=== PATIENT | male | born 1960 | race Caucasian/White ===

== ENCOUNTER 2016-11-13 16:54 | Emergency (ER) | payer MEDICARE, MEDICAID ==
[~2016-11-13] VITALS: Ht 170.2 cm; Wt 75.0 kg
[~2016-11-13 16:54] MED LIST: ASPI-973 PO; CIPR-231 PO; CLOP75TA28 PO; INSU100I SQ; INSU100V7 SUBQ; LISI-567 PO; METF1000 PO; ONDA-54 PO; OXYC-466 PO; OXYC1TAB24 PO; SIMV20TA4 PO; TRAM50TA2 PO; TRAZ-115 PO
[2016-11-13 16:58] VITALS: BP 146/74; PULSE 71; RESP 15; O2SAT 98
--- NOTE | 2016-11-13 18:14 | ED.REPORT ---
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 He is followed by Dr. Coelho and Dr. Yuen. Patient states that his right foot was cleansed and redressed today at 1615, but that his foot started bleeding when he returned home. Patient denies sustaining any trauma or injury to the foot. He states that there was a great deal of blood, which scared him. He therefore called 911. Patient denies having pain in his leg. The patient states that he feels lightheaded whenever he sees blood and that he felt uncomfortable. Patient denies having a fever, chest pain, shortness of breath, or feeling light headed on arrival to the ED. 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 Nursing Notes Stated Complaint: BLEEDING RIGHT FOOT Chief Complaint: Extremity Trauma Nursing Notes Reviewed: Yes Allergies: Coded Allergies: ceftriaxone (Verified Allergy, Severe, rash, 09/07/16) Scheduled Aspirin (Aspirin) 81 Mg Tablet 81 MG PO DAILY Ciprofloxacin (Cipro) 500 Mg Tablet 500 MG PO BID Clopidogrel (Clopidogrel) 75 Mg Tablet 75 MG PO DAILY Insulin Aspart (NovoLOG U-100 Pen) 100 Unit/Ml Insuln.pen 2 UNITS SQ TIDAC Insulin Glargine (Lantus U100 Insulin Vial) 100 Unit/Ml Vial 30 UNIT SUBQ QPM Lisinopril (Lisinopril) 20 Mg Tablet 20 MG PO DAILY Metformin (Glucophage) 1,000 Mg Tablet 1,000 MG PO BID Ondansetron (Ondansetron) 8 Mg Tablet 8 MG PO QID Simvastatin (Simvastatin) 20 Mg Tablet 20 MG PO HS Trazodone (Trazodone) 50 Mg Tablet 50 MG PO HS Scheduled PRN Tramadol (Tramadol) 50 Mg Tablet 50 MG PO Q4H PRN PRN For Pain oxyCODONE-Acetaminophen 10-325 mg (oxyCODONE-Acetaminophen 10-325 mg) 1 Each Tablet 1 TABLET PO Q6H PRN PRN For Pain oxyCODONE-Acetaminophen 5-325 mg (oxyCODONE-Acetaminophen 5-325 mg) 1 Each Tablet 1 TAB PO Q4H PRN PRN For Pain General Time Seen by MD: 17:16 Chief Complaint Other (bleeding from right foot amputation site) Hx Obtained From: Patient Arrived By: Ambulance Onset Occurred: Just prior to arrival Symptom Duration: Since onset Severity: Current: No pain currently Severity: Maximum: No pain Recent Healthcare: No recent hospitalization, Recent doctor visit Similar Sx Previous: No Past Medical History Patient History: Patient reports no known family medical history. Past Medical History Notes: Followed by Dr. [facility] Past Medical History diabetes mellitus with peripheral neuropathy diabetic ulcers, weekly Wound Clinic visits Depression arthritis anxiety Reports: Asthma, GERD, Hypertension Past Surgical History Lower extremity vascular surgery amputation of the left 2nd digit amputation of the right foot Family History Diabetes mellitus Smoking History Never Smoker Social History The patient chews tobacco Alcohol Use: In recovery Drug Use: THC Other Social History: Good social support, Local resident Ambulatory Status Independent Review of Systems Constitutional: Denies: Chills, Fever Musculoskeletal: Denies: Extremity pain, Extremity swelling Neurologic: Denies: Change LOC, Dizziness, Lightheaded Complete sys rev & neg: except as marked. Respiratory: Denies: Non-productive cough, Shortness of breath Cardiovascular: Denies: Chest pain, Palpitations Hematologic: Reports Bleeding, Denies Bruising Physical Exam Initial Vital Signs Vital Signs (First) Date Time Temp Pulse Resp B/P Pulse Ox O2 Delivery O2 Flow Rate FiO2 11/13/16 16:58 36.6 71 15 146/74 98 Room Air Initial VS: Reviewed Head / Eyes: Atraumatic, Normocephalic, PERRL ENT: Conjunctiva normal, No scleral icterus Neck: Supple, Full range of motion Respiratory: No respiratory distress Abdomen / GI: Soft, Non-tender Upper Extremities: Vascular intact, Neuro intact Skin: Warm, Dry, No cyanosis Neurologic: Alert, Oriented, Nonfocal Psychiatric: Mood/affect normal, Behavior normal, Normal thought content Lower Extremity / Pelvis / MS: No swelling, No erythema Ankle / Foot: No swelling, No erythema s/p right foot amputation with grossly bloody gauze, which was remvoed small 2mm punctate area with small amount of blood. no active bleeding, no surrouding erythema. General/Constitutional: Awake, Alert, No acute distress Cardiovascular: Heart rate NL, Regular rhythm Re-Eval/Medical Decision Med Decision/Clinical Course 56-year-old male history of chronic lower extremity wounds presenting with bleeding from right lower external wound status post wound care appointment today. Patient went to wound care and they probed and apparently debrided. Patient reports bleeding afterwards and noticed that the gauze was followed blood. On arrival patient with no active bleeding. His dressing was changed. Stable to go home with return precautions. Source of Hx: Old records Re-Evaluation/Progress : Time of Eval: 18:31 Patient Status: Condition improved Re-Evaluation/Progress Note: Wound is no longer bleeding and will be redressed. Patient understands and agrees with the plan to be discharged home. Discharge instructions and follow-up discussed. All questions were addressed. Return to the ED warnings given. Counseled Regarding: Diagnosis, Need for follow-up, When/why to return to ED Discharge & Departure Impression: Primary Impression: Bleeding from wound Disposition: Home Discharge Condition All VS Reviewed: Yes Condition: Stable Patient Instructions: Chronic Wound Care (ED) Additional Instructions: It does not appear that your wound is actively bleeding. The dressing was replaced in the emergency department today. Your evaluation was reassuring. Follow-up at the [facility] next Wednesday as planned. Return to the emergency department if you develop any increasing bleeding that will not stop with pressure, lightheadedness, chest pain, shortness of breath, fever or concerning symptoms. Referrals: Warren Lemus MD (PCP) Ale Coelho DPM Scribe Attestation Portions of this note were transcribed by Bobbi Browning. I, Dr. Black personally performed the history, physical exam and medical decision-making; I reviewed and confirmed the accuracy of the information in the transcribed note. Signed by: Didi Landeros, 11/13/2016 1935 copies to: Warren Lemus MD; Ale Coelho DPM, Ben M MD Nov 13, 2016 18:14 Bobbi Browning Nov 13, 2016 18:30
[2016-11-13 19:21] VITALS: BP 132/74; PULSE 74; RESP 16; O2SAT 96
== END 2016-11-13 19:22 | disposition home or self-care (01) ==
LOC: EDBD 16:54 → SED 16:54 → EDUNIT# 16:54 → SED 19:22
DX: T87.89 Other complications of amputation stump (principal); Y83.5 Amputation of limb(s) as the cause of abnormal reaction of the patient, or of later complication, without mention of misadventure at the time of the procedure; Y93.89 Activity, other specified; Y99.8 Other external cause status; Y92.531 Health care provider office as the place of occurrence of the external cause; E11.40 Type 2 diabetes mellitus with diabetic neuropathy, unspecified; E13.622 Other specified diabetes mellitus with other skin ulcer; I10 Essential (primary) hypertension; J45.909 Unspecified asthma, uncomplicated; F12.10 Cannabis abuse, uncomplicated; K21.9 Gastro-esophageal reflux disease without esophagitis; F17.200 Nicotine dependence, unspecified, uncomplicated; Z79.84 Long term (current) use of oral hypoglycemic drugs; Z79.82 Long term (current) use of aspirin; Z79.4 Long term (current) use of insulin; Z88.1 Allergy status to other antibiotic agents

== ENCOUNTER 2017-07-03 15:49 | Inpatient (IN) | payer MEDICARE, MEDICAID ==
[2017-07-03] VITALS (9 sets, daily range): BP systolic 125–171; BP diastolic 55–85; PULSE 58–104; RESP 13–20; O2SAT 97–100
[~2017-07-03] VITALS: Ht 170.2 cm; Wt 75.7 kg
--- NOTE | 2017-07-03 15:58 | ED.REPORT ---
HPI-General Illness Date of Service Jul 03, 2017 ED Provider: Efrain Correia MD Pt is a 57 y/o male with a history of DM, CAD, [place], hyperlipidemia, and hypertension who presents to the ED sent from c/o midsternal chest pain that radiates to his left shoulder onset 1999 last night. He describes his symptom as constant with "sharp" and "stabbing" pain that is exacerbated by movement. He was sitting in his chair when the chest pain started. At the worst, he rated his pain as 8/10, but rates it now as 6/10. Additional symptoms include headache , SOB, tingling in L hand, nausea, vomiting x2, and lightheadedness. He denies fever, abdominal pain, bladder or bowel incontinence, or any other symptoms. He was given nitro with temporary relief in symptoms. Nursing Notes Stated Complaint: CHEST PAIN Chief Complaint: Chest Pain Nursing Notes Reviewed: Yes Allergies: Coded Allergies: ceftriaxone (Verified Allergy, Severe, rash, 09/07/16) Scheduled Aspirin (Aspirin) 81 Mg Tablet 81 MG PO QAM Clopidogrel (Clopidogrel) 75 Mg Tablet 75 MG PO QAM Insulin Aspart (NovoLOG U-100 Pen) 100 Unit/Ml Insuln.pen 2 UNITS SQ TIDAC Insulin Glargine (Lantus U100 Insulin Vial) 100 Unit/Ml Vial 10-15 UNIT SUBQ HS Lisinopril (Lisinopril) 20 Mg Tablet 20 MG PO QAM Metformin (Glucophage) 1,000 Mg Tablet 1,000 MG PO BIDWM Olanzapine (Olanzapine) 2.5 Mg Tablet 2.5 MG PO HS Pravastatin (Pravastatin) 20 Mg Tablet 20 MG PO HS Trazodone (Trazodone) 100 Mg Tablet 200 MG PO HS Venlafaxine ER (Venlafaxine ER) 75 Mg Tab.er.24 75 MG PO QAM General Time Seen by MD: 15:58 Chief Complaint Chest pain Hx Obtained From: Patient Arrived By: Walk-in Sudden in Onset?: No Onset Occurred: Yesterday Symptom Duration: Constant Location: : Chest Quality: Painful, Sharp, Stabbing Radiation: : Shoulder Severity: Current: Pain level 6 out of 10 Severity: Maximum: Pain level 8 out of 10 Associated with: Reports: Headache, Nausea, Numb extremities, Shortness of breath, Vomiting Additional Notes: lightheadedness Pertinent Negative: Pt denies other symptoms Relieved by: Prescription meds Context Related History: Reports Coronary artery disease, Reports Diabetes mellitus Recent Healthcare: No recent hospitalization, Recent doctor visit Similar Sx Previous: No Past Medical History Patient History: Patient reports no known family medical history. Past Medical History Notes: Followed by Dr. [facility] Past Medical History diabetes mellitus with peripheral neuropathy diabetic ulcers, weekly Wound Clinic visits [place] in 2012 Depression arthritis anxiety strabismus since childhood Reports: Asthma, Coronary artery disease, GERD, Hyperlipidemia, Hypertension Past Surgical History Lower extremity vascular surgery amputation of the left 2nd digit amputation of the right foot Family History Diabetes mellitus Smoking History Never Smoker Social History The patient chews tobacco Alcohol Use: In recovery Drug Use: THC Other Social History: Good social support, Local resident Ambulatory Status Independent Review of Systems Full Review of Systems Constitutional: Denies: Fever Eyes: Denies: Blurred bilateral Ears / Nose / Throat: Denies: Sore throat Respiratory: Reports: Shortness of breath Cardiovascular: Reports: Chest pain GI: Reports: Nausea, Vomiting (x2), Denies: Abdominal pain Male: Denies Incontinence Musculoskeletal: Denies: Back pain Endocrine: Denies: Weight loss Skin: Denies Rash Allergy / Immune: Denies: Itching Neurologic: Reports: Headache, Lightheaded, Numbness (in L hand), Denies: Focal weakness Psychiatric: Denies: Change mental status Complete sys rev & neg: except as marked. Physical Exam Nursing note and vitals reviewed. Constitutional: Well-developed, well-nourished. Not diaphoretic. Head: Normocephalic and atraumatic. Mouth/Throat: Oropharynx is clear and moist. No oropharyngeal exudate. Eyes: EOM are normal. Pupils are equal, round, and reactive to light. Patient states he has hx of strabismus and family states that they look normal. Neck: Supple, no tracheal deviation. Cardiovascular: Normal rate, regular rhythm. Equal and intact pulses in bilateral upper and lower extremities. No peripheral edema. Pulmonary/Chest: Effort normal and breath sounds normal. No respiratory distress. Abdominal: Soft. No distension. There is no tenderness, rebound, or guarding. Bowel sounds present. Musculoskeletal: Range of motion grossly intact, moving all extremities. No edema or tenderness appreciated. Neurological: AOx3. Grossly nonfocal exam. Strength and sensation intact and equal to bilateral upper and lower extremities. Normal finger to nose testing. Skin: Warm and dry, no rashes or pallor appreciated. Psychiatric: Appropriate mood and affect. Behavior appears normal. Vital Signs Vital Signs Date Time Temp Pulse Resp B/P Pulse Ox O2 Delivery O2 Flow Rate FiO2 07/03/17 21:03 65 16 153/77 98 Room Air 07/03/17 18:02 63 17 140/76 97 Room Air 07/03/17 16:39 72 15 125/73 97 Room Air 07/03/17 16:35 73 13 147/63 99 Room Air 07/03/17 16:29 69 18 156/69 97 Room Air 07/03/17 15:54 37.1 104 20 151/75 100 Initial VS: Reviewed Interpretation & Diagnostics Lab Results Interpretation Result Diagram: 07/03/17 1627 07/03/17 1627 Test 07/03/17 16:27 07/03/17 19:17 07/03/17 20:36 White Blood Count 9.6th/mm3 (3.8-10.1) Red Blood Count 4.04mil/mm3 (4.40-5.80) Hemoglobin 11.7g/dL (13.8-17.2) Hematocrit 33.3% (41.0-50.0) Mean Corpuscular Volume 82.4fL (81-100) Mean Corpuscular Hemoglobin 29.0pg (27.0-35.0) Mean Corpuscular Hemoglobin Concent 35.1% (32.0-37.0) Red Cell Distribution Width 13.1% (12.3-15.4) Platelet Count 226bil/L (150-400) Neutrophils (%) (Auto) 73.8% (40-74) Lymphocytes (%) (Auto) 17.1% (14-46) Monocytes (%) (Auto) 7.7% (4-12) Eosinophils (%) (Auto) 1.0% (0-5) Basophils (%) (Auto) 0.2% (0-3) Prothrombin Time 10.2sec (8.1-12.5) Prothromb Time International Ratio 0.95ratio Sodium Level 129mEq/L (134-144) Potassium Level 4.4mEq/L (3.5-5.2) Chloride Level 90mEq/L (97-108) Carbon Dioxide Level 22mmol/L (18-29) Blood Urea Nitrogen 22mg/dL (6-24) Creatinine 0.96mg/dL (0.76-1.27) Estimat Glomerular Filtration Rate 86mL/min (>59) Glucose Level 117mg/dL (60-99) Calcium Level 9.5mg/dL (8.5-10.1) Magnesium Level 1.3mg/dL (1.6-2.6) Total Bilirubin 0.2mg/dL (0.0-1.2) Aspartate Amino Transf (AST/SGOT) 17U/L (0-50) Alanine Aminotransferase (ALT/SGPT) 11U/L (0-44) Alkaline Phosphatase 64U/L (25-150) Pro-B-Type Natriuretic Peptide 48.38pg/mL (0-210) Total Protein 6.8g/dL (6.4-8.4) Albumin 4.5g/dL (3.4-5.0) Troponin T < 0.010ug/L (0.0-0.011) Hold Urine Received (Received) ECG Interpretation ECG Interpretation: Sinus rhythm, rate 69 Abnormal R-wave progression, early transition Time: 16:09 Interpreted by: ED physician X-Ray Chest Interpretation Chest Xray Interpretation: IMPRESSION: No acute pulmonary process. Dictated by: Jolanta Marquis M.D. on 07/03/2017 at 16:57 Approved by: Jolanta Marquis M.D. on 07/03/2017 at 17:03 View: Portable, 1 view Interpretation / Wet Read by: Interpret - Radiologist CT Head Interpretation IMPRESSION: 1. No acute intracranial process. Dictated by: Jolanta Marquis M.D. on 07/03/2017 at 17:12 Approved by: Jolanta Marquis M.D. on 07/03/2017 at 17:12 Study: Head CT no contrast Interpretation / Wet Read by: Interpret - Radiologist CT Abd / Pelvis Interpretation IMPRESSION: 1. No evidence of aortic dissection or aneurysmal dilation. 2. Unchanged left adrenal mass. 3. Subcentimeter pulmonary nodules as above, nonspecific and no priors are available for comparison. Recommend interval followup is below. Fleischner Society criteria for lung nodule followup. Nodule size (mm)Low-risk patientHigh-risk patient<6 (single or multiple)No routine followup/Optional CT at 12 months.6-8 (single or multiple)CT at 6-12 months; then noptional CT at 18-24 monthsCT at 6-12 months, then 18-24 months i>8 (single)CT at 3 months, then optional CT at 18-24 months if no change.Initial follow-up CT at 3-6 months, then 18-24 months >8 (multiple)CT at 3-[address] at 18-24 months.CT at 3-6 months, then CT at 18-24 months.Non-solid (ground-glass) or partly solid nodules may require longer follow-up to exclude indolent adenocarcinoma. Dictated by: Jolanta Marquis M.D. on 07/03/2017 at 19:58 Approved by: Jolanta Marquis M.D. on 07/03/2017 at 20:05 Study type: Abdominal CT IV contrast Interpretation / Wet Read by: Interpret - Radiologist Re-Eval/Medical Decision Med Decision/Clinical Course In summary, 57-year-old male with a PMHx notable for severe vascular disease, diabetes, hypertension, hyperlipidemia, and coronary artery disease who presents to the ED for evaluation of midsternal chest pain radiating to his left shoulder since last night. Differential includes ACS, PE, PTX, aortic dissection, myocarditis/pericarditis, abdominal etiology such as cholecystitis, MSK pain. Pain has been constant since onset; troponin negative x 2. HEART score of 5. EKG demonstrates sinus rhythm with no acute ischemic changes. Clinical history does not seem consistent with PE; no pleuritic symptoms, O2 saturations normal here, low risk by [facility]. Given the patient's associated headache and hypertension, a CT angiogram of his chest was obtained to ensure no evidence of aortic dissection; this was negative for dissection. He did have some pulmonary nodules of unclear clinical significance; discussed with patient, including the need for follow-up as an outpatient. Neither clinical presentation, exam, or EKG seem c/w pericarditis or myocarditis. No abdominal pain or tenderness. Rest of labs reviewed - sodium of 129, magnesium of 1.3 ( repleted in the ED), BNP within normal limits, hemoglobin of 11.7 (stable from previous) - CBC and CMP otherwise grossly within normal limits. Patient given aspirin here in the ED, as well as morphine and sublingual nitroglycerin with some relief of symptoms. Unable to obtain pain relief without using a nitroglycerin drip; this was started in the ED. Patient would likely benefit from a stress test for risk stratification at a minimum; I am concerned about his story and I discussed the case with Dr. Mares. Of note, patient is also endorsing a headache that got progressively worse over the course of 1 hour last night. SAH seems less likely given not sudden onset, peaking within minutes, normal neuro exam; head CT negative though greater than 6 hours since onset. CVA still on differential diagnosis for his headache and L arm symptoms, though more concerned at this time clinically about the possibility of dissection - thus, will defer CTA head/neck or MRI at this time given need for contrast for CTA and time for MRI to the inpatient team if they still feel warranted. Discussed with admitting team and with patient. I will also defer initiation of heparin drip for now as I would be concerned about an occult bleed that may be made worse until advanced imaging obtained. Source of Hx: Old records Time of Eval: 19:53 Re-Evaluation/Progress Note: Pt rechecked. Discussed plan for admission. Pt understands and agrees to plan. All questions addressed. Consultation #1: Referral / Consult Name: Nini Mares MD Consulted With: Cardiology Call Returned at: 19:01 Scrub Technician: Agrees with eval, Agrees with plan Note: Discussed pt's case with turkey picker, Dr. Mares. He recommends heparin, nitro drip, plavix, and aspirin. Consultation #2: Referral / Consult Name: Saira Wong DO Consulted With: Hospitalist Call Returned at: 19:13 Scrub Technician: Will see patient, Agrees with plan, Accepts admit Note: Discussed pt's case with hospitalist, Dr. Wong. She accepts admission. Consultation #3: Referral / Consult Name: Saira Wong DO Consulted With: Hospitalist Call Returned at: 20:14 Scrub Technician: Agrees with eval, Agrees with plan Note: Updated hospitalist, Dr. Wong, on pt's case. Stated that he has a severe headache that probably needs a CT angiogram. Counseled Regarding: Diagnosis, Lab results, Need for admission Discharge & Departure Primary Impression: Acute coronary syndrome Additional Impression: Headache Headache type: unspecified Headache chronicity pattern: acute headache Intractability: not intractable Qualified Code: R51 - Headache Disposition: ADMITTED TO HOSPITAL Discharge Condition All VS Reviewed: Yes Condition: Stable Referrals: Warren Lemus MD (PCP) Crit Care Except Billable Proc Time Spent: 105-134 minutes Services Performed: Patient management by me, Time spent at bedside, Reviewing test results, Reviewing imaging, Discussing patient care, Documentation in record Critical Care Notes: Please see MDM. Scribe Attestation Portions of this note were transcribed by Marlene Reilly. Dr. Bren Angel, personally performed the history, physical exam and medical decision-making; I reviewed and confirmed the accuracy of the information in the transcribed note. copies to: Warren Lemus MD, William B MD Jul 03, 2017 15:58 Marlene Reilly Jul 03, 2017 16:07 Discharge & Departure Disposition: ADMITTED TO HOSPITAL Discharge Condition All VS Reviewed: Yes Condition: Stable Referrals: Warren Lemus MD (PCP) Crit Care Except Billable Proc Time Spent: >225 minutes Scribe Attestation Portions of this note were transcribed by Marlene Reilly. Dr. Bren Angel, personally performed the history, physical exam and medical decision-making; I reviewed and confirmed the accuracy of the information in the transcribed note. copies to: Warren Lemus MD, William B MD Jul 03, 2017 15:58 Marlene Reilly Jul 03, 2017 16:07
[2017-07-03] MEDS ORDERED: 0.9% Sodium Chloride 500 ML IV ONE (15:59)
[2017-07-03 16:31] LABS: BASOPHILS % (AUTO) 0.2 % (0-3); MONOCYTES % (AUTO) 7.7 % (4-12); Mean Corpuscular Volume 82.4 fL (81-100); NEUTROPHILS % (AUTO) 73.8 % (40-74); Platelet Count 226 bil/L (150-400)
[2017-07-03 16:47] LABS: INR 0.95 ratio
[2017-07-03 16:56] LABS: TROPONIN T < 0.010 ug/L (0.0-0.011)
--- NOTE | 2017-07-03 17:04 | DRSVH ---
PROCEDURE: X-RAY CHEST ONE VIEW, PORTABLE ([id number]) INDICATIONS: chest pain TECHNIQUE: One view of the chest was acquired. COMPARISON: [facility], , CHEST 1VW (PORTABLE), 02/22/2015, 23:12. FINDINGS: Surgical changes and devices: None. Lungs and pleura: No pleural effusions or pneumothorax. Lungs are clear. Mediastinum: Mediastinal contours appear normal. Heart size is normal. Bones and chest wall: No suspicious bony lesions. Overlying soft tissues appear unremarkable. IMPRESSION: No acute pulmonary process. Dictated by: Jolanta Marquis M.D. on 07/03/2017 at 16:57 Approved by: Jolanta Marquis M.D. on 07/03/2017 at 17:03
[2017-07-03 17:06] LABS: Magnesium 1.3 mg/dL (1.6-2.6)
--- NOTE | 2017-07-03 17:14 | DRSVH ---
PROCEDURE: CT BRAIN WITHOUT CONTRAST ([id number]) INDICATIONS: headache TECHNIQUE: Noncontrast 4.5 mm thick angled axial sections acquired from the foramen magnum to the vertex, with c oronal reformats. COMPARISON: [facility], CT, BRAIN W/O CONTRAST, 01/06/2007, 22:06. FINDINGS: Image quality: Excellent. CSF spaces: Basal cisterns are patent. No extra-axial fluid collections. Ventricles are normal in size and shape. Brain: No midline shift. No intracranial masses or hemorrhage. Hartmann-white matter interface is norm al. Skull and face: Calvarium and visualized facial bones are intact, without suspicious lesions. Sinuses: Visualized sinuses and mastoids are clear. IMPRESSION: 1. No acute intracranial process. Dictated by: Jolanta Marquis M.D. on 07/03/2017 at 17:12 Approved by: Jolanta Marquis M.D. on 07/03/2017 at 17:12
[2017-07-03] MEDS ORDERED: Magnesium Sulf 2 Gm/50mL Water 2 GM in IV Premix 1 EACH IV ONE (18:55)
[2017-07-03] MEDS ORDERED: Nitroglycerin 50 mg/250 mL D5W 50,000 MCG in IV Premix 1 EACH IV ONE (19:53)
--- NOTE | 2017-07-03 20:07 | DRSVH ---
PROCEDURE: CT ANGIO CHEST ABDOMEN AND PELVIS INDICATIONS: HTN, CP, ?PUGA, eval dissection TECHNIQUE: Precontrast 5 mm thick sections acquired from the lung apices to the iliac crests. After the adminis tration of intravenous contrast, 3 mm thick sections again acquired from the lung apices to the iliac crests. 3-dimensional maximum intensity projection (MIP) oblique sagittal and coronal reformats wer e then acquired, and/or 3-dimensional volume rendering reformats. For radiation dose reduction, the following was used: automated exposure control. COMPARISON: [facility], CT, L-SPINE W/O CONTRAST, 01/06/2007, 23:55. FINDINGS: Image quality: Excellent. AORTA: No evidence of aneurysmal dilation, dissection or occlusion within the thoracic or abdominal aorta. A therosclerotic calcifications are present. CHEST: Lungs and pleura: No acute airspace opacities. No pleural effusions or pneumothorax. Central and p eripheral airways are patent and normal in caliber. 4 mm nodule is present in the right middle lobe on series 7 image 51. There several punctate nodule is along the right major fissure seen on series 7 images 41 as well as image 42 and 3. 4 mm nodule is present in the posterior right upper lobe on ser ies 7 image 27. No priors are available for comparison. Mediastinum: Heart size is normal. No pericardial effusion. No mediastinal or hilar adenopathy by size criteria. Central pulmonary arteries are normal in size. Esophagus is normal in caliber. No h iatal hernias. Bones and chest wall: No axillary adenopathy by size criteria. Thyroid gland is unremarkable. No s uspicious bony lesions. No vertebral body compression fractures. ABDOMEN: Vasculature: Celiac trunk and mesenteric arteries are patent. Renal arteries are also patent. Solid organs: Liver and spleen are normal in size. Gallbladder is unremarkable. Biliary system is non dilated. Pancreas enhances normally. 25 mm left adrenal mass is present, unchanged. Both kidneys are normal in size and enhancement, without hydronephrosis. Peritoneum and bowel: No free fluid or air. Bowel loops are normal in caliber and wall thickness. Nodes and vessels: No retroperitoneal or mesenteric adenopathy by size criteria. Inferior vena cava is normal in morphology. Miscellaneous: No ventral hernias. PELVIS: Genitourinary: Bladder wall thickness is normal. Miscellaneous: Fat-containing right inguinal hernia is present. Bones: No suspicious bony lesions. No vertebral body compression fractures. IMPRESSION: 1. No evidence of aortic dissection or aneurysmal dilation. 2. Unchanged left adrenal mass. 3. Subcentimeter pulmonary nodules as above, nonspecific and no priors are available for comparison. Recommend interval followup is below. Fleischner Society criteria for lung nodule followup. Nodule size (mm)Low-risk patientHigh-risk patient<6 (single or multiple)No routine followup/Optional CT at 12 months.6-8 (single or multiple)CT at 6-12 months; then noptional CT at 18-24 monthsCT at 6-1 2 months, then 18-24 months i>8 (single)CT at 3 months, then optional CT at 18-24 months if no barnard e.Initial follow-up CT at 3-6 months, then 18-24 months >8 (multiple)CT at 3-[address] at 18-24 months.CT at 3-6 months, then CT at 18-24 months.Non-solid (ground-glass) or partly solid nodules may require longer follow-up to exclude indolent adenocarcinoma. Dictated by: Jolanta Marquis M.D. on 07/03/2017 at 19:58 Approved by: Jolanta Marquis M.D. on 07/03/2017 at 20:05
[2017-07-03] MEDS ORDERED: OLAN2.5T28 PO (20:40)
[2017-07-03] MEDS ORDERED: VENL75TA87 PO (20:40)
[2017-07-03] MEDS ORDERED: TRAZ-118 PO (20:40)
[2017-07-03] MEDS ORDERED: PRAV20TA2 PO (20:43)
--- NOTE | 2017-07-03 22:00 | NUR ---
Admit: Report received from Alf Grullon RN. Pt. arrived to room 2002 at 2150. Pt. transferred from stretcher to bed with standby assist, tolerating activity well. Denies pain. Denies SOB. No overt signs or symptoms of distress. VSS. Pt. placed on MP30, nitro gtt infusing at 5mcg/min. Alert and oriented X3, pleasant and cooperative with care, talkative with staff.
[2017-07-03] MEDS ORDERED: CHOL200025 PO (22:29)
--- NOTE | 2017-07-03 23:55 | PCM.HPMED ---
Subjective Date of Service Jul 03, 2017 Primary Provider: Admitting Physician: Saira Wong DO Primary Care Physician: Warren Lemus MD Attending Physician: Saira Wong DO Chief Complaint: Chest pain History of Present Illness: Sukumar is a 57-year-old male with a history of CAD, PVD with multiples stents in his right leg and a Charcot amputation, hypertension, hyperlipidemia, anxiety , depression that presented to the ED today complaining of chest pain radiating to his left neck with numbness and tingling down his left arm that started July 01 around 8 PM. He rated the pain at 8 out of 10. He says this was associated with headache, dizziness and shortness of breath, without palpitations, diaphoresis or nausea. He says this is similar to pain he had during an [place] about 5 years ago. In the emergency department he received morphine, aspirin and was started on an IV nitro drip which resolved his chest pain and headache. He had a head CT which showed no acute intracranial process, a CTA of his chest , abdomen and pelvis which was notable only for some small pulmonary nodules. His troponins were negative, and his EKG showed normal sinus rhythm with no ST changes. Review of Systems: Review of Systems: A comprehensive review of systems was conducted with the patient and found to be negative except as above in the History of Present Illness. Allergies Coded Allergies: ceftriaxone (Verified Allergy, Severe, rash, 09/07/16) Home Medications Metformin 2000 mg daily Lisinopril 20 mg daily Pravastatin 20 mg daily Plavix 75 mg daily Trazodone 200 mg at bed Olanzapine 2.5 mg at bed Ondansetron 4 mg every 8 hours Venlafaxine ER 75 mg daily PMH Diabetes mellitus type II hypertension peripheral vascular disease CAD hyperlipidemia anxiety depression Surgical History Right foot Charcot amputation, Family History Mother at age 63 from complications of diabetes Father at 62 from [place] Social History Hx Alcohol Use: Yes (SOBER SINCE September 2016 ) Hx Substance Use: Yes (occasional marijuana) Hx Tobacco Use: Yes (chews tobacco x20yrs) Smoking Status: Never Smoker Living Arrangement: Alone Exam Vital Signs Vital Sign - Last Date Time Temp Pulse Resp B/P Pulse Ox O2 Delivery O2 Flow Rate FiO2 07/03/17 22:35 65 16 141/59 100 Room Air 07/03/17 21:56 36.6 Exam General: No acute distress, well-developed, well-nourished, appropriately interactive HEENT: Normocephalic, atraumatic. External ears without defect. Pupils equal, round, and reactive to light and accommodation. Anicteric sclerae, moist conjunctivae, and no lid lag. Oropharynx free of erythema and cobble stoning with moist mucosa. Poor dentition. Neck: Supple with full range of motion. No jugular venous distension. No bruits. No lymphadenopathy or thyromegaly. Cardiovascular: Regular rate and rhythm with no murmurs, rubs, or gallops appreciated Pulmonary: Clear to auscultation bilaterally with no crackles, wheezes, or rhonchi. Normal respiratory effort with no use of accessory muscles. Abdomen: Bowel tones present. Soft, nontender, nondistended. No hepatosplenomegaly or masses appreciated. Extremities: Bandage over stump of right foot amputation is dry with no surrounding erythema. No clubbing, cyanosis, edema, or lymphadenopathy appreciated. Skin: Normal temperature, turgor, and texture; no rash, ulcers, or subcutaneous nodules appreciated. Neurological: Cranial nerves grossly intact. Normal muscle strength, tone, and bulk. Reflexes, coordination, and sensory function within normal limits. No known gait impairment. Psychiatric: Normal mood and affect. Alert and oriented to person, place, and time. Lab and Diagnostics Result Diagram: 07/03/17 1627 07/03/17 1627 X-Rays, CTs and MRIs X-RAY CHEST ONE VIEW, PORTABLE IMPRESSION: No acute pulmonary process. Dictated by: Jolanta Marquis M.D. on 07/03/2017 at 16:57 CT BRAIN WITHOUT CONTRAST IMPRESSION: 1. No acute intracranial process. Dictated by: Jolanta Marquis M.D. on 07/03/2017 at 17:12 CT ANGIO CHEST ABDOMEN AND PELVIS IMPRESSION: 1. No evidence of aortic dissection or aneurysmal dilation. 2. Unchanged left adrenal mass. 3. Subcentimeter pulmonary nodules as above, nonspecific and no priors are available for comparison. Recommend interval followup is below. Fleischner Society criteria for lung nodule followup. Nodule size (mm)Low-risk patientHigh-risk patient<6 (single or multiple)No routine followup/Optional CT at 12 months.6-8 (single or multiple)CT at 6-12 months; then noptional CT at 18-24 monthsCT at 6-12 months, then 18-24 months i >8 (single)CT at 3 months, then optional CT at 18-24 months if no change.Initial follow-up CT at 3-6 months, then 18-24 months >8 (multiple)CT at 3-[address] at 18-24 months.CT at 3-6 months, then CT at 18- 24 months.Non-solid (ground-glass) or partly solid nodules may require longer follow-up to exclude indolent adenocarcinoma. Dictated by: Jolanta Marquis M.D. on 07/03/2017 at 19:58 12-lead ECG Normal sinus rhythm no acute ST changes Assessment & Plan In summary, this is a 57-year-old male with a history of coronary artery disease , peripheral vascular disease, diabetes mellitus mellitus type II admitted for chest pain at rest which was relieved by morphine and nitroglycerin. His troponins have been negative and no ST changes on EKG. 1. Unstable angina, present on admission, active -Continue nitroglycerin drip -Initiate anticoagulation with heparin drip- the fact that the patient is mentating appropriately, and his left arm tingling and numbness went away with nitroglycerin reduces the likelihood of an intracranial process. -Symptom relief with O2 and morphine -Continue Plavix -Trend troponin -Order 2-D echo to evaluate for new wall motion abnormalities -Consult cardiology -Hold metformin in case a cath is needed -Consider stress test prior to discharge 2. Diabetes mellitus type II, present on admission, active -Monitor blood sugars -Implement sliding scale insulin -Check hemoglobin A1c 3. Hyponatremia -Recheck with a.m. labs 4. Hypomagnesemia -Replete with oral magnesium 5. Depression, chronic, stable -Continue venlafaxine 6. Hyperlipidemia chronic, stable -Order lipid panel -Continue statin therapy with pravastatin 7. Hypertension -Continue lisinopril Patient Status: Patient is admitted under inpatient status with expected length of stay greater than 2 midnights due to severity of presenting symptoms, risk of adverse event, and complexity of treatment plan. Jan Feliz DO Jul 03, 2017 23:55
[2017-07-04] VITALS (16 sets, daily range): BP systolic 113–158; BP diastolic 57–89; PULSE 55–72; RESP 13–22; O2SAT 97–100
[2017-07-04] MEDS ORDERED: Polyethylene Glycol (PEG) 17 Gm Powder PO PRN (00:25)
[2017-07-04] MEDS ORDERED: Ondansetron 2 mg/mL 2 mL Inj IVPUSH PRN (00:25)
[2017-07-04] MEDS ORDERED: Alum-Mag Hydrox-Simeth 30 mL Suspension PO PRN (00:25)
--- NOTE | 2017-07-04 05:52 | NUR ---
Cardiac: Telemetry sinus rhythm, HR: 60's-70's. Denies chest pain throughout shift. Nitro gtt infusing at 5mcg/min. VSS. No overt signs or symptoms of distress. Addendum: 07/04/17 at 0645 by KAELYN BLANCO RN Heparin gtt started at this time at 1000 units/hr per physician order.
[2017-07-04] MEDS ORDERED: Heparin 5,000 Unit/mL Inj IVPUSH ONE (06:00)
[2017-07-04] MEDS: Heparin 25K Unit/500mL 0.45 NS 25,000 UNIT in IV Premix 1 EACH IV SCH (06:38)
[2017-07-04] MEDS ORDERED: Magnesium Chloride SR 64 mg ER24 Tablet PO ONE (06:55)
[2017-07-04 07:57] LABS: BASOPHILS % (AUTO) 0.3 % (0-3); EOSINOPHILS % (AUTO) 1.6 % (0-5); MONOCYTES % (AUTO) 6.4 % (4-12); Mean Corpuscular Hemoglobin 28.5 pg (27.0-35.0); Mean Corpuscular Volume 83.6 fL (81-100); NEUTROPHILS % (AUTO) 75.6 % (40-74); Platelet Count 198 bil/L (150-400)
[2017-07-04] MEDS: Nitroglycerin 2% 1 Gm Ointment TOPICAL SCH ×2 (11:04→18:21)
--- NOTE | 2017-07-04 13:05 | NUR ---
[facility] signed
--- NOTE | 2017-07-04 13:10 | CONS ---
[address] [address] CONSULTATION REPORT PATIENT: BOONE PARKER : 1960 MR#: [id number] ADMIT: 07/03/2017 JOB ID: [id number] DATE OF SERVICE: 07/04/2017 REASON FOR CARDIOLOGY CONSULT: Further evaluation of chest pain. CHIEF COMPLAINT: Prolonged chest pain. PRESENT HISTORY: This 57-year-old, male who claims that he had a small heart attack about five years ago but did not have any intervention, peripheral vascular disease, status post atherectomy, as well as drug-coated balloon angioplasty of the right tibioperoneal trunk and proximal right posterior tibial artery and stenting of the proximal right peroneal artery in December [address] Mccall, history of type 2 diabetes mellitus, essential hypertension, hyperlipidemia, anxiety/depression got admitted because of above-mentioned chief complaint. According to the patient, Wednesday night about 8:00, he developed chest pain. Prior to chest pain, he developed headache which was throbbing in nature. Then, he developed chest pain which was like a sharp pain. On a scale of 1-10, it was initially 5 in intensity but then it became about 8. He had numbness and tingling of his left arm. He continued to have that kind of discomfort whole night and yesterday morning. He denies any significant shortness of breath or palpitation or diaphoresis or nausea, vomiting, dizziness, or double vision. He told his friend about his chest discomfort yesterday and was seen in the ED. He was given nitroglycerin, morphine, and started on nitro drip. Subsequently, chest pain got resolved. At present, he is lying on bed. He is not having any active chest pain. According to him, small joints in his left hand hurt as well. He is not able to make a complete fist and it has been going on from last three days. No fever, chills, PND, orthopnea, or worsening claudication. He uses walker, sometimes wheelchair at home. He has a partial right foot amputation. No previous history of stroke. Denies any history of rheumatic heart disease or congenital heart disease or congestive heart failure history. PAST MEDICAL HISTORY: History of type 2 diabetes mellitus, hypertension, peripheral vascular disease, CAD, hyperlipidemia, anxiety/depression. PAST SURGICAL HISTORY: Right foot Charcot amputation. ALLERGIES: The patient is allergic to CEFTRIAXONE. SOCIAL HISTORY: He chews tobacco. 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 FAMILY HISTORY: Positive for coronary artery disease. REVIEW OF SYSTEMS: Ten-point review of systems were obtained. They are negative except as stated above. PHYSICAL EXAMINATION: Blood pressure 132/71, heart rate 59, respiratory rate 16, oxygen saturation in room air 99 to 100%. HEENT: No significant anemia, jaundice. Neck: No apparent JVP or carotid bruit. Chest: No obvious crepitation or rhonchi. CVS: S1, S2 normal. No S3, no S4. I do not appreciate any significant murmur. Abdomen: No obvious pulsatile mass. No hepatosplenomegaly. Extremities: No pedal edema. The patient has right foot partial amputation. At present, there is a dressing at the stump. On the left side, I do not see any obvious gangrene, ulcer. Feeble distal pulses. PAPER SALES REPRESENTATIVE: The patient is alert, oriented to time, place, and person and able to move all the four extremities. However, he has some weakness in his right hand. He claims that it hurts when he tries to make fist. LABORATORIES: Sodium 134, potassium 4.2. He came with sodium of 129. BUN 19, creatinine 0.87. Blood sugar 146. Serial troponin normal. Triglycerides 58, total cholesterol 139, LDL 53, HDL 74. INR 0.95. WBC 7.7, hemoglobin 11.3, platelets 198. Patient underwent CT chest, abdomen, pelvis. There was no aortic dissection or aneurysmal dilation. The patient has unchanged left adrenal mass, about 25 mm. Subcentimeter pulmonary nodules seen. Heart size was normal. No pericardial effusion. CT brain: No acute intracranial process. On x-ray chest, no acute pulmonary process. EKG on admission revealed sinus rhythm with RSR-complex in V1 with early transition without any significant ST-T changes. QTc 417 msec. TN interval 148 msec. No evidence of pre-excitation. HOME MEDICATIONS: Include: 1. Metformin 2000 mg daily. 2. Lisinopril 20 mg daily. 3. Pravastatin 20 mg daily. 4. Plavix 75 mg daily. 5. Trazodone 200 mg at bedtime. 6. Olanzapine 2.5 mg at bedtime. 7. Ondansetron 4 mg every 8 hours. 8. Venlafaxine ER 75 mg daily. ASSESSMENT AND PLAN: Prolonged chest pain with known history of peripheral vascular disease, details as stated above, essential hypertension, hyperlipidemia, type 2 diabetes mellitus, hyponatremia on admission, underlying anxiety/depression. The patient had serial troponins which are normal. On surface EKG, I do not see any convincing ischemic changes. So far, no significant sustained arrhythmias. Clinically, he appears compensated. He is not in heart failure. At this point of time from cardiac perspective, will recommend echocardiogram to assess his LV function and rule out any significant structural heart disease. If his LV function is normal without any significant regional wall motor motion abnormalities, we will recommend perfusion study for CAD diagnosis and risk stratification. Considering significant CAD risk factors and known history of atherosclerotic vascular disease, the pretest likelihood of coronary artery disease is high. He has some weakness in his left hand. Will recommend brain MRI and MRA to make sure there is no stroke. Meanwhile, we will recommend continuation of medical treatment and risk factor modification. Will stop the nitroglycerin drip. Further plan will be based on the result of above-mentioned diagnostic tests. Preventive measures including complete cessation of tobacco use discussed. The patient understood. Discussed the plan with the patient as well as our hospitalist team. Cardiology service will continue to follow. Total time spent today for taking care of this patient, including having discussion with the hospitalist team, as well as reviewing old charts, about 75 minutes.
--- NOTE | 2017-07-04 13:30 | DRSVH ---
PROCEDURE: MRI STROKE PROTOCOL ([id number]) Pre- and post-contrast brain MRI, non-contrast brain MR angiogram, pre- and postcontrast neck MR fidel ogram INDICATIONS: STROKE PROTOCOL TECHNIQUE: Brain: Noncontrast axial T1 spin echo, axial T2 fast spin echo, sagittal and axial FLAIR, coronal T2 fast spin echo, axial gradient echo, axial diffusion and ADC through the brain. After the administr ation of contrast, axial 3D VIBE of the cranial vasculature and brain. Brain MRA: Non-contrast 3-D time of flight MR angiogram, with multiple kocdzsb-ripyjcafn-zislhfqxpp (MIP) reformats performed. Neck MRA: Axial and sagittal TruFISP through the neck. Coronal dynamic MR angiogram during administ ration of contrast in the arterial and venous phases, with 3-dimenstional yydceet-jdiosffot-wjkozngfu n (MIP) reformats constructed from subtraction images. COMPARISON: None. FINDINGS: Image quality: Excellent. BRAIN: CSF spaces: Ventricles are normal in size and shape. Basal cisterns are patent. No extra-axial flu id collections. Brain: No intracranial bleeds or mass effects. Hartmann-white matter signal changes are present, statist ically chronic small vessel ischemic disease. Hartmann-white matter interface is normal. Diffusion weig hted images show no acute ischemic insults. Brainstem appears normal. Normal intravascular flow voi ds are present. No abnormal intracranial enhancement. Skull and face: Calvarial marrow signal is normal. Orbits appear normal. Sinuses: There is a right maxillary mucous retention cyst. The mastoids are clear, except for trace f luid seen within the inferior mastoid air cells of doubtful clinical significance. BRAIN MR ANGIOGRAM: Anterior circulation: Intracranial internal carotid arteries are normal in size and enhancement. Th e left A1 segment is not seen. The flow within the paired anterior cerebral arteries is normal and sy mmetric. The flow within the middle cerebral arteries is normal and symmetric. The anterior communi cating artery is seen. No stenoses, occlusions, or aneurysms. Posterior circulation: The visualized portions of the vertebral arteries demonstrate normal caliber, and join to form a normal appearing basilar artery. The flow within the posterior cerebral arteries is normal and symmetric. No stenoses, occlusions, or aneurysms. NECK MR ANGIOGRAM: Carotids: Great vessels demonstrate a conventional anatomy as they arise from the aortic arch. The origins of the common carotid arteries appear patent. The calibers and courses of both common caroti d arteries are normal. The bifurcation regions appear normal bilaterally. 30% focal stenosis involv ing the petrous segment of the left internal carotid artery. There is also atherosclerotic irregulari ty of the left cavernous segment. No right ICA stenosis identified. Posterior circulation: The origin of the right vertebral artery appears unremarkable. There is a grea ter than 50% focal stenosis at the origin of left vertebral artery. More superior portions of both ve rtebral arteries demonstrate normal course and caliber, and join to form a normal appearing basilar a rtery. Miscellaneous: Subclavian arteries appear patent. Pre-contrast images through the neck show no soft tissue abnormalities. IMPRESSION: BRAIN MRI: No evidence of acute ischemia. Right maxillary mucous retention cyst. Scattered white matter signal changes, statistically chronic microvascular ischemic disease. BRAIN MR ANGIOGRAM: 50% focal stenosis involving left ICA petrous segment and atherosclerotic irregularity of the left IC A cavernous segment. The left A1 segment is not seen which may be congenitally atretic versus occluded. NECK MR ANGIOGRAM: No definite focal stenosis at the bifurcation or cervical ICA bilaterally. Greater than 50% focal stenosis of the origin of the left vertebral artery The estimate of stenosis included in the report of the imaging study was calculated using the NASCET method Dictated by: Joaquín lBue M.D. on 07/04/2017 at 13:08 Approved by: Joaquín Blue M.D. on 07/04/2017 at 13:28
[2017-07-04] MEDS: Heparin 5,000 Unit/mL Inj IVPUSH PRN (13:53)
--- NOTE | 2017-07-04 14:47 | NUR ---
nitro gtt dc'd; mri/mra; heparin gtt Pt. denied cp; nitro gtt dc'd at 1155 am; nitro paste 1 inch applied soon after to RUFINA. Pt. taken for MRI/MRA, heparin gtt stopped for appx 40 minutes for procedure. Heparin gtt infusing per cardiac protocol at 1100 units/hr. Addendum: 07/04/17 at 1510 by KENNY ROBLES RN c/o claustrophmd jocelyne notified; one time dose of lorazepam 0.5mg iv given x1 before pt. taken for MRI/MRA; tolerated procedure well.
--- NOTE | 2017-07-04 16:53 | NUR ---
Social Work- Initial Assessment/Multidisciplinary Rounds Data: See Initial Assessment and Advance Directive intervention for additional information. Pt is a 57 year old male admitted for chest pain per H&P. Pt's insurance is [facility] and [facility] Supp. PCP is Warren Lemus MD. Pt's readmit risk score is not entered at this time. Pt's NOK and d/c planning contact manager is daughter Christy Garibay [phone]. Pt discussed in multidisciplinary rounds, pt is anticipated to d/c tomorrow pending Cardiology consult. No SW needs identified in rounds at this time, no SW orders received. No concerns related to pt's capacity for self-care expressed. SW met with pt at bedside regarding d/c plan, SW role explained. Pt alert and oriented x3. Pt's capacity for self-care assessed. Pt resides in [place] alone in a ADA accessible apartment. Pt has a prosthetic foot, uses a walker or wheelchair when not using his foot. Pt does not drive, uses the bus or [employer]. Pt has history of Rehana HUFF RN PT and history at [facility]. Pt has no LTC or VA benefits. Pt has Advance Directive in hard chart. Pt anticipated to d/c home with his daughter to transport via POV, but pt states that he can also use [employer] or take the bus. SW provided d/c planning checklist and wrote phone number and plan on whiteboard. SW will continue to follow for d/c planning needs. Assessment: Pt who is independent with ADLs and self-care at baseline. Plan: Pt anticipated to d/c home with his daughter to transport via POV. No SW needs identified at this time, no orders received. SW will continue to follow for d/c planning needs . LORA Antunez Addendum: 07/04/17 at 1656 by TERESA HUNTER Amended: Links added.
--- NOTE | 2017-07-04 18:34 | DRSVH ---
[facility] [address] [place] [address] Echocardiogram Report Name: BOONE PARKER LStudy Date: 07/04/2017 Height: 67 in Hospital Exam Location: [facility] Weight: 166 lb Gender: Male BSA: 1.9 m2 : 1960 Age: 57 yrs BP: 134/70 mmHg Reason For Study: Angina Ordering Physician: HOSPITALIST [facility] Performed By: Ceci Dillard Referring Physician: TANIA MELISSA Interpretation Summary The left ventricle is normal in size. The ejection fraction is estimated to be 65-70%. The right ventricle is grossly normal size. The right ventricular systolic function is normal. There is mild tricuspid regurgitation. The right ventricular systolic pressure is estimated at 23 mmHg assuming a right atrial pressure of 3 mm Hg. Procedure: A two-dimensional transthoracic echocardiogram with color flow and Doppler was performed. The study quality was technically adequate. There is no prior echocardiogram noted for this patient. The patient was in normal sinus rhythm during the exam. Left Ventricle: The left ventricle is normal in size. Proximal septal thickening is noted. There is no echo evidence for significant left ventricular outflow tract obstruction. There is no thrombus. The ejection fraction is estimated to be 65-70%. There are no focal wall motion abnormalities. Assessment of diastolic parameters indicates a relaxation abnormality of the left ventricle, consistent with normal filling pressures. Right Ventricle: The right ventricle is grossly normal size. The right ventricular systolic function is normal. Atria: Borderline left atrial enlargement. The right atrium is normal in size. The interatrial septum is intact with no evidence for an atrial septal defect. Mitral Valve: There is mild mitral annular calcification. The mitral valve leaflets are slightly calcified. There is trace mitral regurgitation. Aortic Valve: The aortic valve is trileaflet. The aortic valve is slightly calcified. There is no aortic valve stenosis. No aortic regurgitation is present. Tricuspid Valve: The tricuspid valve is normal. There is mild tricuspid regurgitation. The right ventricular systolic pressure is estimated at 23 mmHg assuming a right atrial pressure of 3 mm Hg. Pulmonic Valve: The pulmonic valve leaflets are thin and pliable; valve motion is normal. There is trace pulmonic regurgitation. Great Vessels: The aortic root is normal size. The ascending aorta is normal in size. The IVC is of normal diameter and collapses greater than 50% with a sniff. This suggests a low right atrial pressure of 3 mm Hg. Pericardium/ Pleura There is no pericardial effusion. There is no pleural effusion. MMode/2D Measurements & Calculations LVIDd: 5.4 cm RA long axis LVOT diam LVIDs: 3.1 cm LA A2 area: 20.0 cm FS: 42.7 % LA A4 area: 19.5 cm RA area asc Aorta IVSd: 1.0 cm LA length (vol): 5.0 cm Diam: 3.1 cm LVPWd: 0.96 cm LA vol: 65.9 ml : 14.4 cm LA vol index RA vol: 35.0 ml RA : 35.3 ml/m2 : 18.8 mm2 LV rincon. diameter/BSA LV sys. diameter/BSA TAPSE: 2.6 cm (cm/m^2): 2.9 (cm/m^2): 1.7 Doppler Measurements & Calculations Ao V2 max: 128.9 cm/secMV E max kev MV E/A: 0.92 TR max kev Ao max P.6 mmHg : 67.0 cm/sec Med Peak E' Kev : 221.6 cm/sec Ao mean P.3 mmHg MV A max kev TR max PG LVOT Max Kev : 72.6 cm/sec E/E' med: 8.5 : 19.6 mmHg : 107.4 cm/sec Lat Peak E' Kev PA V2 max GARRICK(I,D): 3.8 cm : 77.7 cm/sec sev ratio: 0.92 E/E' lat: 8.7 PA mean PG E/e' average: 8.6 : 1.6 mmHg MV dec time: 0.21 sec Ao V2 mean LV V1 max PG PA V2 mean : 84.0 cm/sec : 61.4 cm/sec Ao V2 VTI LV V1 VTI: 23.0 cmPA pr(Accel) : 8.4 mmHg GARRICK(V,D): 3.5 cm2 GARRICK indexed to BSA (cm^2/m^2): 2.1 Reading Physician:AKIRA
--- NOTE | 2017-07-04 20:04 | PCM.PNMED ---
Subjective Date of Service Jul 04, 2017 Subjective overnight: No acute events noted overnight. Today: The patient denies any recurrence of his chest pain after discontinuing the nitroglycerin drip. 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 The patient denies a cough, fever or chills, nausea or vomiting. Exam Vital Signs Vital Sign - Last Date Time Temp Pulse Resp B/P Pulse Ox O2 Delivery O2 Flow Rate FiO2 07/04/17 07:13 59 16 116/57 99 Room Air 07/04/17 02:58 36.6 Intake and Output 07/03/17 07/03/17 07/04/17 Cumulative From/Thru 15:00 23:00 07:00 07/03/17 15:54 - 07/04/17 05:45 Intake Total 500 ml 869 ml 1369 ml Output Total 1350 ml 1350 ml Balance 500 ml -481 ml 19 ml Intake Oral 600 ml 600 ml IV Total 500 ml 269 ml 769 ml Output Urine Total 1350 ml 1350 ml # Bowel Movements 0 0 Exam General: Middle-aged man, No acute distress, well-developed, well-nourished, appropriately interactive HEENT: Normocephalic, atraumatic. External ears without defect. Pupils equal, round, and reactive to light and accommodation. Anicteric sclerae, moist conjunctivae, and no lid lag. Oropharynx free of erythema and cobble stoning with moist mucosa. Poor dentition. Neck: Supple with full range of motion. No jugular venous distension. No bruits. No lymphadenopathy or thyromegaly. Cardiovascular: Regular rate and rhythm with no murmurs, rubs, or gallops appreciated Pulmonary: Clear to auscultation bilaterally with no crackles, wheezes, or rhonchi. Normal respiratory effort with no use of accessory muscles. Abdomen: Bowel tones present. Soft, nontender, nondistended. No hepatosplenomegaly or masses appreciated. Extremities: Bandage over stump of right foot amputation is dry with no surrounding erythema non-tender to palpation. No clubbing, cyanosis, edema, or lymphadenopathy appreciated. Skin: Normal temperature, turgor, and texture; no rash, ulcers, or subcutaneous nodules appreciated. MSK: Social Service Assistant is decreased on the left with pain on active range of motion testing, strength is intact bilaterally at biceps and triceps knee flexion and extension Neurological: Cranial nerves 2 through 12 intact. No dysmetria, dysdiadochokinesia or dyskinesia otherwise noted, negative drift on upper or lower extremities Psychiatric: Normal mood and affect. Alert and oriented to person, place, and time. Lab and Diagnostics Result Diagram: 07/03/17 1627 07/03/17 1627 X-Rays, CTs and MRIs X-RAY CHEST ONE VIEW, PORTABLE IMPRESSION: No acute pulmonary process Dictated by: Jolanta Marquis M.D. on 07/03/2017 at 16:57 CT BRAIN WITHOUT CONTRAST IMPRESSION: 1. No acute intracranial process. Dictated by: Jolanta Marquis M.D. on 07/03/2017 at 17:12 CT ANGIO CHEST ABDOMEN AND PELVIS IMPRESSION: 1. N0 evidence of aortic dissection or aneurysmal dilation. 2. Unchanged left adrenal mass. 3. Subcentimeter pulmonary nodules as above, nonspecific and no priors are available for comparison. Recommend interval followup is below. Dictated by: Jolanta Marquis M.D. on 07/03/2017 at 19:58 MRI STROKE PROTOCOL IMPRESSION: BRAIN MRI: No evidence of acute ischemia. Right maxillary mucous retention cyst. Scattered white matter signal changes, statistically chronic microvascular ischemic disease. BRAIN MR ANGIOGRAM: 50% focal stenosis involving left ICA petrous segment and atherosclerotic irregularity of the left ICA cavernous segment. The left A1 segment is not seen which may be congenitally atretic versus occluded. NECK MR ANGIOGRAM: No definite focal stenosis at the bifurcation or cervical ICA bilaterally. Greater than 50% focal stenosis of the origin of the left vertebral artery The estimate of stenosis included in the report of the imaging study was calculated using the NASCET method Approved by: Joaquín Blue M.D. on 07/04/2017 at 13:28 12-lead ECG Normal sinus rhythm no acute ST changes Cardiac Echo Impressions Echocardiogram Report Interpretation Summary The left ventricle is normal in size. The ejection fraction is estimated to be 65-70%. The right ventricle is grossly normal size. The right ventricular systolic function is normal. There is mild tricuspid regurgitation. The right ventricular systolic pressure is estimated at 23 mmHg assuming a right atrial pressure of 3 mm Hg. Reading Physician:PM Assessment & Plan In summary, this is a 57-year-old male with a history of coronary artery disease , peripheral vascular disease, diabetes mellitus mellitus type II admitted for chest pain at rest which was relieved by morphine and nitroglycerin. His troponins have been negative and no ST changes on EKG. Atypical chest pain, present on admission, active -Patient describes substernal chest pain not associated with exertion worsening with movement, and improved with nitroglycerin, Symptom relief with O2 and morphine -Initiate anticoagulation with heparin drip -Continue Plavix -Continue nitroglycerin patch -Trend troponin x 3 negative -Echocardiogram shows normal EF without significant noted wall motion abnormality -Consult cardiology with recommendations for stress test nuclear medicine perfusion scan given the high likelihood of coronary artery disease -Hold metformin in case a cath is needed Acute Left sided hand weakness, present on admission, active - Patient describes recent onset over the last 4 days with pain on active range of motion - MRI stroke protocol to assess for possible SAND WORKER involvement, failed to reveal an cause of left hand weakness - Patient describes pain and difficulty closing her hand consistent with localized process possibly osteoarthritis Diabetes mellitus type II, present on admission, active -Monitor blood sugars -Implement sliding scale insulin -Check hemoglobin A1c Mild normocytic anemia, presumed chronic, present on admission - Hemoglobin of 11.6 with MCV of 83 of admission - Anemia panel ordered Acute mild Hyponatremia, present on admission, resolved - Sodium of 129 on admission and improved to 134 with IV fluid hydration - Possibly mild SIADH secondary to venlafaxine - Improved with IV hydration - We will monitor off IV fluids and assess for recurrence consistent with SIADH Acute Hypomagnesemia, present on admission, treated -Replete with oral magnesium Depression, chronic, stable -Continue venlafaxine Hyperlipidemia, chronic, stable -Order lipid panel -Atorvastatin 40 mg at bedtime Hypertension, chronic, present on admission -Continue lisinopril Patient will likely be discharged within the next 1-2 days depending on further cardiac intervention after nuclear medicine stress test Pain Evaluation: Adequate Pain Control VTE Prophylaxis: Other (heparin GTT) Resuscitation Status: CPR: Attempt Resuscitation Attending Statement The patient was seen and examined together with Dr. Morales on 07/04/2017 and I agree with the history, exam and plan as outlined in the note above. . John Morales DO Jul 04, 2017 07:49 Goyo Pennington MD Jul 05, 2017 13:52
[2017-07-05 02:47] VITALS: BP 107/62; PULSE 61; RESP 16; O2SAT 97
[2017-07-05] MEDS: Nitroglycerin 2% 1 Gm Ointment TOPICAL SCH (03:27)
[2017-07-05 06:27] LABS: Mean Corpuscular Hemoglobin 28.4 pg (27.0-35.0)
--- NOTE | 2017-07-05 06:35 | NUR ---
cardiac pt denied chest pain throughout shift. telemetry sinus rhythm with HR in 50's and 60's. heparin currently infusing at 1000 units/hr titrating per protocol. pt NPO past midnight for stress test this AM. Nitro paste remains in place awaiting MD order to remove prior to stress test. VSS.
[2017-07-05 07:09] LABS: Unsaturated Iron Binding 83.9 ug/dL
[2017-07-05 07:15] VITALS: BP 118/60; PULSE 63; RESP 18; O2SAT 97
[2017-07-05 07:41] LABS: Magnesium 1.5 mg/dL (1.6-2.6); Phosphorus 2.9 mg/dL (2.5-4.9)
[2017-07-05] MEDS: Heparin 25K Unit/500mL 0.45 NS 25,000 UNIT in IV Premix 1 EACH IV SCH (09:11)
[2017-07-05 10:48] VITALS: PULSE 58
--- NOTE | 2017-07-05 11:53 | NUR ---
stress test pt. npo this am for stress test. Nitro paste dc'd at 0830 and washed off pt. chest. Taken for procedure this am. Pt. cp free; no pain, discomfort, sob or n/v. Heparin gtt on standby for test per md orders.
[2017-07-05 12:28] VITALS: BP 116/54; PULSE 72; RESP 18; O2SAT 99
[2017-07-05] MEDS: Heparin 5,000 Unit/mL Inj IVPUSH PRN (14:35)
--- NOTE | 2017-07-05 15:35 | DRSVH ---
PROCEDURE: EITHER REST OR STRESS ONLY. Pharmacological stress myocardial perfusion SPECT with gated imaging and ejection fraction. RADIOPHARMACEUTICAL: 21.6 mCi of Tc-99m tetrofosmin intravenously at peak pharmacologic stress. INDICATIONS: RULE OUT ACUTE CORONARY SYNDROME. TECHNIQUE: Radiopharmaceutical was injected at peak stress test. SPECT images were obtained. SPECT myocardial perfusion images were displayed in short axis, horizontal long axis, and vertical long ax is views. Gated images were reviewed using [employer] [place] [employer] software. COMPARISON: None. CARDIAC STRESS: A pharmacologic stress test was performed under the supervision of attending staff u sing an infusion of Lexiscan as per protocol. Hemodynamic Data: There is normal blood pressure and heart rate response to pharmacologic stress. Symptoms: The patient had nausea, dyspnea and AP, which was relieved with 100 mg of IV aminophylline . Aminophylline: 100 mg IV aminophylline was given. EKG: Baseline rhythm was sinus. Stress EKG did not reveal any significant ischemic changes. There w as no significant arrhythmia. FINDINGS: 1. Raw Data: There appears to be adequate myocardial uptake. 2. Left Ventricular Function: Gated images demonstrate normal left ventricular wall thickening. No segmental wall motion abnormalities. Left ventricular end diastolic volume is 88 mL. Left ventricu lar stress ejection fraction is 73; normal values are above 45%. 3. Myocardial Perfusion: Stress supine images reveal normal myocardial perfusion. IMPRESSION: This is a normal myocardial perfusion study. Left ventricular function is preserved. O verall this is a low-risk myocardial perfusion scan. Dictated by: Nini Mares M.D. on 07/05/2017 at 14:10 Transcribed by: ARELY on 07/05/2017 at 18:34 Approved by: Nini Mares M.D. on 07/07/2017 at 16:44
[2017-07-05 16:01] VITALS: BP 108/56; PULSE 76; RESP 16; O2SAT 98
--- NOTE | 2017-07-05 16:04 | PCM.DIMED ---
Bello Luo DO 07/05/17 1604: Discharge Instructions Date of Service Jul 05, 2017 Dates of Hospitalization Jul 03, 2017 at 21:28 Discharge Diagnosis Discharge Diagnosis Acute atypical non-cardiac chest pain Acute Left sided hand weakness Diabetes mellitus type II Mild normocytic anemia Acute mild Hyponatremia Acute Hypomagnesemia Depression Hyperlipidemia Hypertension Medication Instructions Additional med instructions Please take all home meds as previously prescribed. No new medications at this time. Test Results Test Results Xray, ct scan and MRI of the brain show no acute disease CT scan of the chest and abdomen show small pulmonary nodules which should be followed up on in approximately 6 months Diet Discharge Diet: No restrictions Activity Discharge Activity: No restrictions Call your provider Call your provider for: Fever or Chills, Shortness of breath, Bleeding, Chest pain, Vomitting, Excessive diarrhea, Weakness (unilateral) Patient Instructions Patient Instructions Take medications as described above. Based on our testing it appears that your chest pain is not cardiac in nature. However, if you become acutely short of breath or chest pain symptoms begin worsening please return to the ED for further workup. Follow-up plan Follow up with primary care within the next 1-2 weeks for further workup of non- cardiac chest pain. Follow-up Provider: Warren Lemus MD Follow-up with PCP in: 1 week Janice Richey DO 07/05/17 1835: Discharge Instructions Attending's Statement The patient was seen and examined together with Dr. Luo on 07/05/17 and I agree with the history, exam and plan as outlined in the note above. Bello Luo DO Jul 05, 2017 16:04 Janice Richey DO Jul 05, 2017 18:35
--- NOTE | 2017-07-05 16:23 | PROG NOTE ---
[address] [address] PROGRESS NOTE PATIENT: BOONE PARKER : 1960 MR#: [id number] ADMIT: 07/03/2017 JOB ID: [id number] DATE: 07/05/2017 SUBJECTIVE: The patient lying on bed. He is not having any chest pain. Denies any obvious new stroke-like symptoms or PND, orthopnea or fever, chills, new cardiovascular symptoms. In summary, this 57-year-old, male who has a history of peripheral vascular disease status post atherectomy as well as drug-coated balloon angioplasty of the right tibioperoneal trunk and proximal right posterior tibial artery and stenting of the proximal right peroneal artery in December [address] Mascorro, history of type 2 diabetes mellitus, essential hypertension, hyperlipidemia, anxiety, depression, partial right foot amputation presented with prolonged chest discomfort as well as some weakness, tingling, numbness in the left arm. In the hospital, the patient ruled out for acute myocardial infarction. Patient underwent angiographic MRI of the brain which did not reveal any acute infarction. Left ICA has about 50% stenosis. Left vertebral artery has more than 50% stenosis. He had an echocardiogram which revealed LV ejection fraction 65% to 70% without any significant structural heart disease. The patient underwent pharmacological perfusion study which did not reveal any obvious ischemia or infarction. OBJECTIVE: Blood pressure 116/54, heart rate 72, respiratory rate 18, oxygen saturation in room air 99%. Neck: No apparent JVD. Chest: No obvious crepitation or rhonchi. CVS: S1, S2 normal. No S3, no S4. No significant murmur. Abdomen: No obvious hepatosplenomegaly. Extremities: No significant pedal edema. The patient has partial amputation of the right foot and dressing on the stump. FULFILLMENT SPECIALIST: Alert, oriented to time, place, and person. Telemetry: Sinus rhythm with baseline heart rate in 50s with activity 93 without any significant sustained arrhythmias. LABORATORIES: Hemoglobin 11, platelets 208. Sodium 133, potassium 4.3, BUN 15, creatinine 0.6. Patient came with sodium of 129, hemoglobin A1c 7.1, magnesium 1.5, TSH 1.45. ASSESSMENT/PLAN: Prolonged chest pain with known peripheral vascular disease with underlying type 2 diabetes mellitus, essential hypertension, hyperlipidemia, hyponatremia on admission, hypomagnesemia, anxiety, depression. In the hospital, the patient has ruled out for acute myocardial infarction. On 2D echo, there is no significant structural heart disease. LV function is preserved. Perfusion study did not reveal any obvious ischemia infarction. At this point of time, from Cardiology perspective we will recommend medical management and risk factor modification. From Cardiology's perspective, he can be discharged. Consider magnesium replacement. Preventive measures discussed with the patient. He understood. At this point of time, Cardiology service will sign off. TOTAL TIME SPENT TODAY: About 35 minutes.
--- NOTE | 2017-07-05 16:35 | PCM.DC.MED ---
Discharge Summary Date of Service Jul 05, 2017 Dates of Hospitalization Date of Hospital Admission Jul 03, 2017 at 21:28 Date of Discharge: Jul 05, 2017 Providers: Admitting Physician: Saira Wong DO Primary Care Physician: Warren Lemus MD Attending Physician: Saira Wong DO Diagnosis at Time of Discharge Diagnosis at Time of Discharge Acute atypical non-cardiac chest pain Acute Left sided hand weakness Diabetes mellitus type II Mild normocytic anemia Acute mild Hyponatremia Acute Hypomagnesemia Depression Hyperlipidemia Hypertension Consultations Cardiology: Dr. Mares Procedures XRay, CTs & MRIs X-RAY CHEST ONE VIEW, PORTABLE IMPRESSION: No acute pulmonary process Dictated by: Jolanta Marquis M.D. on 07/03/2017 at 16:57 CT BRAIN WITHOUT CONTRAST IMPRESSION: 1. No acute intracranial process. Dictated by: Jolanta Marquis M.D. on 07/03/2017 at 17:12 CT ANGIO CHEST ABDOMEN AND PELVIS IMPRESSION: 1. N0 evidence of aortic dissection or aneurysmal dilation. 2. Unchanged left adrenal mass. 3. Subcentimeter pulmonary nodules as above, nonspecific and no priors are available for comparison. Recommend interval followup is below. Dictated by: Jolanta Marquis M.D. on 07/03/2017 at 19:58 MRI STROKE PROTOCOL IMPRESSION: BRAIN MRI: No evidence of acute ischemia. Right maxillary mucous retention cyst. Scattered white matter signal changes, statistically chronic microvascular ischemic disease. BRAIN MR ANGIOGRAM: 50% focal stenosis involving left ICA petrous segment and atherosclerotic irregularity of the left ICA cavernous segment. The left A1 segment is not seen which may be congenitally atretic versus occluded. NECK MR ANGIOGRAM: No definite focal stenosis at the bifurcation or cervical ICA bilaterally. Greater than 50% focal stenosis of the origin of the left vertebral artery The estimate of stenosis included in the report of the imaging study was calculated using the NASCET method Approved by: Joaquín Blue M.D. on 07/04/2017 at 13:28 ECG 12 Lead Normal sinus rhythm no acute ST changes Cardiac Echo Impression Echocardiogram Report Interpretation Summary The left ventricle is normal in size. The ejection fraction is estimated to be 65-70%. The right ventricle is grossly normal size. The right ventricular systolic function is normal. There is mild tricuspid regurgitation. The right ventricular systolic pressure is estimated at 23 mmHg assuming a right atrial pressure of 3 mm Hg. Reading Physician:PM Brief History Sukumar is a 57-year-old male with a history of CAD, PVD with multiples stents in his right leg and a Charcot amputation, hypertension, hyperlipidemia, anxiety , depression that presented to the ED complaining of chest pain radiating to his left neck with numbness and weaknes sof the Left arm that started July 01 around 8 PM. In the emergency department he received morphine, aspirin and was started on an IV nitro drip which resolved his chest pain and headache. A head CT showed no acute intracranial process, a CTA of his chest, abdomen and pelvis which was notable only for some small pulmonary nodules. An MRI showed no acute process. Troponins remained negative throughout his stay, and EKGs showed normal sinus rhythm with no ST changes. Pt underwent a stress test on 07/05 which showed no acute abnormality. Hospital Course 57-year-old male with a history of coronary artery disease, peripheral vascular disease, diabetes mellitus mellitus type II admitted for chest pain at rest which was relieved by morphine and nitroglycerin. Patient was admitted and found to have 3 negative troponins and also had a normal EF. The patient underwent a cardiac stress test which was negative for any coronary artery disease. The patient also on an MRI for possible stroke as the patient was complaining of left-sided hand weakness and this was also found to be negative. The left sided hand weakness is localized to most likely secondary to osteoarthritis. Hospital course see below: Atypical chest pain, present on admission, active -Patient describes substernal chest pain not associated with exertion worsening with movement, and improved with nitroglycerin, Symptom relief with O2 and morphine -Troponin x 3 negative -Echocardiogram shows normal EF without significant noted wall motion abnormality -Cardiology consulted, stress test negative for coronary artery disease Acute Left sided hand weakness, present on admission, active - Patient describes recent onset over the last 4 days with pain on active range of motion - MRI stroke protocol to assess for possible [employer]TER involvement, failed to reveal an cause of left hand weakness - Patient describes pain and difficulty closing her hand consistent with localized process possibly osteoarthritis - follow up as outpatient Diabetes mellitus type II, present on admission, active -Monitor blood sugars -hemoglobin A1c 7.1 during hosp stay Mild normocytic anemia, presumed chronic, present on admission - Hemoglobin of 11.6 with MCV of 83 of admission - Anemia panel ordered Acute mild Hyponatremia, present on admission, resolved - Sodium of 129 on admission and improved to 134 with IV fluid hydration - Possibly mild SIADH secondary to venlafaxine Acute Hypomagnesemia, present on admission, treated -Continue oral magnesium Depression, chronic, stable -Continue venlafaxine Hyperlipidemia, chronic, stable -Lipid panel WNL -Atorvastatin 40 mg at bedtime Hypertension, chronic, present on admission -Continue lisinopril Exam Vital Signs (Last) Date Time Temp Pulse Resp B/P Pulse Ox O2 Delivery O2 Flow Rate FiO2 07/05/17 16:01 36.8 76 16 108/56 98 Room Air Exam General: No acute distress, well-developed, well-nourished, appropriately interactive HEENT: Normocephalic, atraumatic. External ears without defect. Pupils equal, round, and reactive to light and accommodation. Anicteric sclerae, moist conjunctivae. Neck: Supple with full range of motion. No jugular venous distension. No bruits. No lymphadenopathy or thyromegaly. Cardiovascular: Regular rate and rhythm with no murmurs, rubs, or gallops appreciated Pulmonary: Clear to auscultation bilaterally with no crackles, wheezes, or rhonchi. Normal respiratory effort with no use of accessory muscles. Abdomen: Bowel tones present. Soft, nontender, nondistended. No hepatosplenomegaly or masses appreciated. Extremities: right foot amputation non-tender to palpation. No clubbing, cyanosis, edema, or lymphadenopathy appreciated. Skin: Normal temperature, turgor, and texture; no rash, ulcers, or subcutaneous nodules appreciated. MSK: Toe Pounder is decreased on the left with pain on active range of motion testing, strength is intact bilaterally at biceps and triceps knee flexion and extension Neurological: Cranial nerves grossly. Reflexes Appropriate Psychiatric: Normal mood and affect. Alert and oriented to person, place, and time. Test 07/03/17 16:27 07/03/17 20:36 07/04/17 07:02 07/05/17 05:50 Prothrombin Time 10.2sec (8.1-12.5) Prothromb Time International Ratio 0.95ratio Total Bilirubin 0.2mg/dL (0.0-1.2) Aspartate Amino Transf (AST/SGOT) 17U/L (0-50) Alanine Aminotransferase (ALT/SGPT) 11U/L (0-44) Alkaline Phosphatase 64U/L (25-150) Pro-B-Type Natriuretic Peptide 48.38pg/mL (0-210) Total Protein 6.8g/dL (6.4-8.4) Albumin 4.5g/dL (3.4-5.0) Hold Urine Received (Received) Neutrophils (%) (Auto) 75.6% (40-74) Lymphocytes (%) (Auto) 16.0% (14-46) Monocytes (%) (Auto) 6.4% (4-12) Eosinophils (%) (Auto) 1.6% (0-5) Basophils (%) (Auto) 0.3% (0-3) Hemoglobin A1c 7.1% (4.8-5.6) Troponin T 0.010ug/L (0.0-0.011) Triglycerides Level 58mg/dL (0-149) Cholesterol Level 139mg/dL (100-199) LDL Cholesterol, Calculated 53.400mg/dL (0-99) VLDL Cholesterol 11.600mg/dL HDL Cholesterol 74mg/dL (>39) Cholesterol/HDL Ratio 1.88 (0.0-4.4) White Blood Count 7.1th/mm3 (3.8-10.1) Red Blood Count 3.88mil/mm3 (4.40-5.80) Hemoglobin 11.0g/dL (13.8-17.2) Hematocrit 32.6% (41.0-50.0) Mean Corpuscular Volume 84.0fL (81-100) Mean Corpuscular Hemoglobin 28.4pg (27.0-35.0) Mean Corpuscular Hemoglobin Concent 33.7% (32.0-37.0) Red Cell Distribution Width 13.2% (12.3-15.4) Platelet Count 208bil/L (150-400) Sodium Level 133mEq/L (134-144) Potassium Level 4.3mEq/L (3.5-5.2) Chloride Level 96mEq/L (97-108) Carbon Dioxide Level 24mmol/L (18-29) Blood Urea Nitrogen 15mg/dL (6-24) Creatinine 0.76mg/dL (0.76-1.27) Estimat Glomerular Filtration Rate 112mL/min (>59) Glucose Level 142mg/dL (60-99) Calcium Level 9.1mg/dL (8.5-10.1) Phosphorus Level 2.9mg/dL (2.5-4.9) Magnesium Level 1.5mg/dL (1.6-2.6) Iron Level 164ug/dL (35-150) Total Iron Binding Capacity 248ug/dL (250-450) Percent Iron Saturation 66%sat (15-50) Unsaturated Iron Binding 83.9ug/dL Ferritin 244ng/mL (30-400) Procalcitonin 0.06ng/mL (0.00-0.08) Thyroid Stimulating Hormone (TSH) 1.450uIU/mL (0.450-4.500) Test 07/05/17 13:40 Activated Partial Thromboplast Time 40.1sec (22.8-33.0) Discharge Medications Discharge Medications Aspirin (Aspirin) 81 Mg Tablet 81 MG PO QAM (Reported) Cholecalciferol (Vitamin D3) (Vitamin D3) 2,000 Unit Tablet 2,000 UNIT PO QAM ( Reported) Clopidogrel (Clopidogrel) 75 Mg Tablet 75 MG PO QAM (Reported) Insulin Aspart (NovoLOG U-100 Pen) 100 Unit/Ml Insuln.pen 2 UNITS SQ TIDAC ( Reported) Insulin Glargine (Lantus U100 Insulin Vial) 100 Unit/Ml Vial 10-15 UNIT SUBQ HS (Reported) Lisinopril (Lisinopril) 20 Mg Tablet 20 MG PO QAM (Reported) Metformin (Glucophage) 1,000 Mg Tablet 1,000 MG PO BIDWM (Reported) Olanzapine (Olanzapine) 2.5 Mg Tablet 2.5 MG PO HS (Reported) Pravastatin (Pravastatin) 20 Mg Tablet 20 MG PO HS (Reported) Trazodone (Trazodone) 100 Mg Tablet 200 MG PO HS (Reported) Venlafaxine ER (Venlafaxine ER) 75 Mg Tab.er.24 75 MG PO QAM (Reported) Additional med instructions Please take all home meds as previously prescribed. No new medications at this time. Followup Plan Disposition: Home Follow-up plan Follow up with primary care within the next 1-2 weeks for further workup of non- cardiac chest pain. Discharge Diet: No restrictions Discharge Activity: No restrictions Patient Instructions Take medications as described above. Based on our testing it appears that your chest pain is not cardiac in nature. However, if you become acutely short of breath or chest pain symptoms begin worsening please return to the ED for further workup. Follow-up Provider: Warren Lemus MD Follow-up with PCP in: 1 week Time spent greater than 35 minutes spent on documentation and coordination of DC Attending Statement The patient was seen and examined together with Dr. Luo on 07/05/17 and I have added additional information to the note above. copies to: Warren Lemus MD, Adam J DO Jul 05, 2017 16:35 Janice Richey DO Jul 05, 2017 18:43
--- NOTE | 2017-07-05 17:16 | NUR ---
Social Work: Discharge Data: EMR reviewed. Patient is on day 2 of hospitalization for chest pain & acute coronary syndrome per H&P. Patient discussed in morning rounds. Patient has been deemed medically stable for discharge today. Transportation will be provided by patient's daughter Christy. If daughter is unable to transport patient, he will transport via bus or [employer]. No additional needs are anticipated at this time. Assessment: Patient will discharge home. Plan: Patient will discharge home today. Transportation will be provided by patient's daughter vs bus vs [employer]. Patient has no additional needs at this time. LORA Mcintyre
--- NOTE | 2017-07-05 17:46 | NUR ---
Discharge pt. dc'd at 1740 this evening; vss; A&Ox3; ambulating ind in room; steady on feet; denied cp or pressure, n/v. Medications and discharge instructions reviewed with patient. Pt. stated he has an appointment with PCP Dr. Lemus in am; encouraged pt. to keep appointment. No new medications. Carenotes provided regarding chest pain, stress test, and magnesium. Belongings with patient. PIV's DC'd; catheters intact. Escorted to private vehicle via w/c by yuki.
== END 2017-07-05 17:43 | disposition home or self-care (01) | DRG 313 ==
LOC: SED 15:49 → OBSVTOIN 21:28 → PCC 21:28
PROVIDERS: ADMIT Internal Medicine; ATTEND Internal Medicine
DX: R07.89 Other chest pain (principal); I25.10 Atherosclerotic heart disease of native coronary artery without angina pectoris; E78.5 Hyperlipidemia, unspecified; K21.9 Gastro-esophageal reflux disease without esophagitis; I73.9 Peripheral vascular disease, unspecified; E11.42 Type 2 diabetes mellitus with diabetic polyneuropathy; E83.42 Hypomagnesemia; F41.8 Other specified anxiety disorders; F17.220 Nicotine dependence, chewing tobacco, uncomplicated; M19.042 Primary osteoarthritis, left hand; I25.2 Old myocardial infarction; Z79.82 Long term (current) use of aspirin; Z89.431 Acquired absence of right foot; Z79.4 Long term (current) use of insulin; Z82.49 Family history of ischemic heart disease and other diseases of the circulatory system; Z83.3 Family history of diabetes mellitus; Z89.422 Acquired absence of other left toe(s); Z95.9 Presence of cardiac and vascular implant and graft, unspecified